=== PATIENT | female | born 2000 | race Hispanic/Latino ===

== ENCOUNTER 2018-10-11 07:39 | Emergency (ER) | payer OTHER ==
[2018-10-11 08:06] VITALS: BMI 32.8
[2018-10-11 08:07] VITALS: BP 131/86; TEMP 98
[2018-10-11] MEDS ORDERED: Sodium Chloride 0.9% 1,000 ML IV SCH (08:15)
--- NOTE | 2018-10-11 08:24 | ED PDOC ---
Arrival/HPI - General Historian: Patient - History of Present Illness Narrative History of Present Illness (Text): 10/11/18 08:18 Pt is a 18 yo female with a PMH of "thyroid problems", and depression who presents to the ED complaining of 3 episodes of billious vomiting this morning. Pt states she had been feeling feverish yesterday and took a dose of Doxycycline which she had left over from a previous illness. Pt denies sick contacts, diarrhea or constipation. Time/Duration: 24 hours Symptom Course: Collicky Quality: Unable to Describe Severity Level: 8 <Grabiel Gomez - Last Filed: 10/11/18 10:28> - History of Present Illness Associated Symptoms (Text): 10/11/18 09:03 Seen and examined with the resident. Our history and physical exam reveals a young woman complaining of nausea and vomiting this morning following taking doxycycline on an empty stomach. There is no abdominal pain. No diarrhea. No travel or exposure. She does not appear ill. Her abdomen is soft and nontender. <Dk Schofield - Last Filed: 10/11/18 10:51> - General Chief Complaint: GI Problem Time Seen by Provider: 10/11/18 07:45 Past Medical History - Psychiatric Hx Substance Use: No <Grabiel Gomez - Last Filed: 10/11/18 10:28> - Provider Review Nursing Documentation Reviewed: Yes <Dk Schofield - Last Filed: 10/11/18 10:51> Family/Social History Smoking Status: vape Hx Alcohol Use: Yes Frequency of alcohol use: Socially Hx Substance Use: No <Grabiel Gomez - Last Filed: 10/11/18 10:28> - Physician Review Nursing Documentation Reviewed: Yes Family/Social History: No Known Family HX <Dk Schofield - Last Filed: 10/11/18 10:51> Allergies/Home Meds <Grabiel Gomez - Last Filed: 10/11/18 10:28> <Dk Schofield - Last Filed: 10/11/18 10:51> Allergies/Adverse Reactions: Allergies almond Adverse Reaction (Verified 10/11/18 08:04) VOMITING carrots Adverse Reaction (Uncoded 10/11/18 08:04) RASH Review of Systems - Review of Systems Constitutional: Fevers Eyes: Normal ENT: Sore Throat Respiratory: Normal Cardiovascular: Normal Gastrointestinal: Nausea, Vomiting Musculoskeletal: Normal Skin: Normal Neurological: Normal Endocrine: Normal Hemo/Lymphatic: Normal Psychiatric: Normal <Grabiel Gomez - Last Filed: 10/11/18 10:28> - Physician Review All systems were reviewed & negative as marked: Yes <Dk Schofield - Last Filed: 10/11/18 10:51> Physical Exam Vital Signs Temp Pulse Resp BP Pulse Ox 10/11/18 07:58 98 F 94 H 19 131/86 97 Temperature: Afebrile Blood Pressure: Normal Pulse: Regular Respiratory Rate: Normal Appearance: Positive for: Well-Appearing Mental Status: Positive for: Alert and Oriented X 3 - Systems Exam Head: Present: Atraumatic, Normocephalic Pupils: Present: PERRL Extroacular Muscles: Present: EOMI Mouth: Present: Moist Mucous Membranes Neck: Present: Normal Range of Motion Respiratory/Chest: Present: Clear to Auscultation, Good Air Exchange. No: Respiratory Distress, Accessory Muscle Use Cardiovascular: Present: Regular Rate and Rhythm, Normal S1, S2. No: Murmurs Abdomen: Present: Normal Bowel Sounds. No: Tenderness, Distention Upper Extremity: Present: Normal Inspection Lower Extremity: Present: Normal Inspection. No: Edema Neurological: Present: GCS=15, CN II-XII Intact, Speech Normal Skin: Present: Warm, Dry, Rashes Psychiatric: Present: Alert, Oriented x 3 <Grabiel Gomez - Last Filed: 10/11/18 10:28> Vital Signs Reviewed: Yes Vital Signs Temp Pulse Resp BP Pulse Ox 10/11/18 07:58 98 F 94 H 19 131/86 97 <Dk Schofield - Last Filed: 10/11/18 10:51> Medical Decision Making ED Course and Treatment: 10/11/18 08:26 test CBC CMP 10/11/18 10:20 pt tolerating liquid PO intake, will discharge Pt seen, examined, assessment and plan discussed wit Dr Kanwal Gomez PGY1 - Medication Orders Current Medication Orders: Sodium Chloride (Sodium Chloride 0.9%) 1,000 mls @ 100 mls/hr IV .Q10H RONAL <Grabiel Gomez - Last Filed: 10/11/18 10:28> ED Course and Treatment: 10/11/18 10:26 Patient tolerated clear liquids and yogurt with no further nausea or vomiting. In agreement with resident note, which includes further HPI details. Patient was seen and evaluated with resident, came up with plan and treatment together. 18 year old female presents complaining of vomiting x3 that began this morning associated with a fever yesterday. Plan: -- labs -- IV Fluids, Zofran Inj -- POC Urine Test -- reassess/dispo - Lab Interpretations Lab Results: Total Bilirubin 0.4 mg/dL (0.2-1.3) 10/11/18 08:27 AST 26 U/L (14-36) 10/11/18 08:27 ALT 11 U/L (7-56) 10/11/18 08:27 Alkaline Phosphatase 64 U/L (38-126) 10/11/18 08:27 Total Protein 7.7 g/dL (5.8-8.3) 10/11/18 08:27 Albumin 4.4 g/dL (3.0-4.8) 10/11/18 08:27 Globulin 3.3 gm/dL 10/11/18 08:27 Albumin/Globulin Ratio 1.3 (1.1-1.8) 10/11/18 08:27 I have reviewed the lab results: Yes - Medication Orders Current Medication Orders: Sodium Chloride (Sodium Chloride 0.9%) 1,000 mls @ 100 mls/hr IV .Q10H RONAL Last Admin: 10/11/18 08:30 Dose: 100 mls/hr eMAR Start Stop Document 10/11/18 08:30 CD (Rec: 10/11/18 08:31 CD [id number]) Intravenous Solution Start Date 10/11/18 Start Time 08:30 <Dk Schofield - Last Filed: 10/11/18 10:51> - Scribe Statement The provider has reviewed the documentation as recorded by the Lam Stewart Provider Scribe Attestation: All medical record entries made by the Scribe were at my direction and personally dictated by me. I have reviewed the chart and agree that the record accurately reflects my personal performance of the history, physical exam, medical decision making, and the department course for this patient. I have also personally directed, reviewed, and agree with the discharge instructions and disposition. <Dk Schofield - Last Filed: 10/11/18 10:51> Disposition/Present on Arrival - Present on Arrival History of DVT/PE: No History of Uncontrolled Diabetes: No Urinary Catheter: No History of Decub. Ulcer: No History Surgical Site Infection Following: None <JasonGrabielelissa Curran - Last Filed: 10/11/18 10:28> - Present on Arrival Any Indicators Present on Arrival: No History of DVT/PE: No History of Uncontrolled Diabetes: No Urinary Catheter: No History of Decub. Ulcer: No History Surgical Site Infection Following: None - Disposition Have Diagnosis and Disposition been Completed?: Yes Disposition Time: 10:25 Patient Plan: Discharge <Dk Schofield - Last Filed: 10/11/18 10:51> - Disposition Diagnosis: Vomiting Disposition: HOME/ ROUTINE Condition: IMPROVED Discharge Instructions (ExitCare): Nausea and Vomiting, Adult (DC) Additional Instructions: Clear liquids for 24 hours. Follow-up with PMD. Follow-up in ER as needed. Prescriptions: Ondansetron ODT [Zofran ODT] 4 mg PO Q6 #20 odt Referrals: Kashmir Tenorio MD [Primary Care Provider] - Follow up with primary Forms: [employer] ([place]), WORK NOTE
[2018-10-11 09:03] LABS: ALB/GLOB RATIO 1.3 (1.1-1.8); ALBUMIN 4.4 g/dL (3.0-4.8); ALT/SGPT 11 U/L (7-56); AST/SGOT 26 U/L (14-36); BLOOD UREA NITROGEN 16 mg/dL (7-21); CALCIUM 9.2 mg/dL (8.4-10.5); GFR NON-AFRICAN AMERICAN > 60
[2018-10-11 09:04] LABS: BASO # 0.03 K/mm3 (0.0-2.0); BASO % 0.3 % (0.0-3.0); EOS # 0.1 (0.0-0.7); EOS % 0.6 % (1.5-5.0); HEMOGLOBIN 12.5 g/dL (12.0-16.0); LYMPH # 1.9 (1.2-3.4); LYMPH % 15.8 % (22.0-35.0); MEAN CELL VOLUME 87.7 fl (80.0-105.0); MEAN CORPUSCULAR HEMOGLOBIN 28.5 pg (25.0-35.0); MEAN CORPUSCULAR HGB CONC 32.5 g/dl (31.0-37.0); MONO # 1.1 (0.1-0.6); MONO % 8.9 % (1.0-6.0); RBC 4.39 10^6/uL (3.5-6.1); WHITE BLOOD COUNT 11.9 10^3/uL (4.5-11.0)
[2018-10-11 09:42] VITALS: PULSE 81; RESP 18; O2SAT 95
== END 2018-10-11 10:24 | disposition home or self-care (01) ==
LOC: ED 07:39
DX: R11.10 Vomiting, unspecified (principal)
CPT/HCPCS: 80053; 81025; 85025; 96374; 99285; J2405; J7030

== ENCOUNTER 2018-10-26 07:16 | Emergency (ER) | payer OTHER ==
[2018-10-26 07:16] VITALS: BMI 32.8
[2018-10-26 07:27] VITALS: BP 111/86; PULSE 86; RESP 18; TEMP 98.1; O2SAT 96
[2018-10-26] MEDS ORDERED: Amoxicillin-Clav 875-125 mg Tab PO STA (07:46)
--- NOTE | 2018-10-26 07:55 | ED PDOC ---
Arrival/HPI - General Chief Complaint: Bite Time Seen by Provider: 10/26/18 07:22 Historian: Patient - History of Present Illness Narrative History of Present Illness (Text): 10/26/18 07:45 18 year old female, with past medical history of hyperthyroidism, presents to emergency department for complaints of swelling and redness in left hand due to a bug bite that occurred last night. Patient states she was working in her uncle's yard when she was bitten by a bug. She reports swelling shortly after, and notes taking 2 benadryll at 9:45 with no significant improvement. She reports taking a third one at 11 pm. Patient states that swelling and redness further spread to knuckles this morning. She denies any fever, chills, chest pain, shortness of breath, or any other somatic complaints at this time. Time/Duration: Other (last night) Symptom Onset: Gradual Symptom Course: Unchanged Activities at Onset: Light Context: Other (yard ) Past Medical History - Provider Review Nursing Documentation Reviewed: Yes - Cardiac Other/Comment: Tachycardia from hyperthyroidism - Pulmonary Hx Respiratory Disorders: No - Neurological Hx Neurological Disorder: No - HEENT Hx HEENT Disorder: No - Renal Hx Renal Disorder: No - Endocrine/Metabolic Hx Hyperthyroidism: Yes - Hematological/Oncological Hx Blood Disorders: No - Integumentary Hx Dermatological Disorder: No - Musculoskeletal/Rheumatological Hx Musculoskeletal Disorders: No - Gastrointestinal Hx Gastrointestinal Disorders: No - Genitourinary/Gynecological Hx Genitourinary Disorders: No - Psychiatric Hx Psychophysiologic Disorder: Yes Hx Depression: Yes Hx Substance Use: No - Anesthesia Hx Anesthesia: No Family/Social History - Physician Review Nursing Documentation Reviewed: Yes Family/Social History: Unknown Family HX Smoking Status: Never Smoked Hx Alcohol Use: Yes Frequency of alcohol use: Socially Hx Substance Use: No Allergies/Home Meds Allergies/Adverse Reactions: Allergies almond Adverse Reaction (Verified 10/26/18 07:25) VOMITING carrots Adverse Reaction (Uncoded 10/26/18 07:25) RASH Home Medications: Home Meds Medication Instructions Recorded Confirmed Propranolol HCl [Propranolol HCl 60 mg PO DAILY 10/26/18 10/26/18 ER] Review of Systems - Physician Review All systems were reviewed & negative as marked: Yes - Review of Systems Constitutional: absent: Fevers Respiratory: absent: SOB Musculoskeletal: Joint Swelling (left hand ) Physical Exam - Physical Exam Narrative Physical Exam (Text): 10/26/18 07:56 Constitutional: No acute distress. Head: Normocephalic. Atraumatic. Eyes: PERRL. ENT: Moist mucous membranes. Neck: Supple. Cardiovascular: Regular rate. Chest: No tenderness. Respiratory: Clear to auscultation bilaterally. GI: Soft. Nontender. Nondistended. Back: No CVA tenderness. Musculoskeletal: No tenderness or swelling of extremities. Skin: Generalized edema and errythema to thenar region of left hand Neurologic: Alert, no focal deficit. Vital Signs Reviewed: Yes Vital Signs Temp Pulse Resp BP Pulse Ox 10/26/18 07:16 98.1 F 86 18 111/86 96 Temperature: Afebrile Blood Pressure: Normal Pulse: Regular Respiratory Rate: Normal Appearance: Positive for: Well-Appearing, Non-Toxic, Comfortable Pain Distress: None Mental Status: Positive for: Alert and Oriented X 3 Medical Decision Making ED Course and Treatment: 10/26/18 07:55 Impression: 18 year old female presents to emergency department for swelling in left hand following bug bite last night. Plan: -- Antibiotics, observe for spreading erytehma, fever, chills. - Medication Orders Current Medication Orders: Amoxicillin/Clavulanate Potassium (Augmentin 875 Mg-125 Mg Tab) 1 tab PO STAT STA; Protocol Stop: 10/26/18 07:47 - Scribe Statement The provider has reviewed the documentation as recorded by the Scribe Areli Carrasquillo All medical record entries made by the Scribe were at my direction and personally dictated by me. I have reviewed the chart and agree that the record accurately reflects my personal performance of the history, physical exam, medical decision making, and the department course for this patient. I have also personally directed, reviewed, and agree with the discharge instructions and disposition. Disposition/Present on Arrival - Present on Arrival Any Indicators Present on Arrival: No History of DVT/PE: No History of Uncontrolled Diabetes: No Urinary Catheter: No History of Decub. Ulcer: No History Surgical Site Infection Following: None - Disposition Have Diagnosis and Disposition been Completed?: Yes Diagnosis: Bug bite Disposition: HOME/ ROUTINE Disposition Time: 08:03 Patient Plan: Discharge Patient Problems: Current Active Problems Problem Status Onset Bug bite Acute Condition: GOOD Discharge Instructions (ExitCare): Insect Bites and Stings Prescriptions: Amoxicillin/Clavulanate [Augmentin 875 MG-125 MG] 1 tab PO BID #20 tab Referrals: Kashmir Tenorio MD [Primary Care Provider] - Follow up with primary Forms: [employer] ([place]), WORK NOTE
[2018-10-26] MEDS ORDERED: Sodium Chloride 0.9% 1,000 ML IV STA (08:05)
== END 2018-10-26 08:10 | disposition home or self-care (01) ==
LOC: ED 07:16
DX: S60.562A Insect bite (nonvenomous) of left hand, initial encounter (principal); W57.XXXA Bitten or stung by nonvenomous insect and other nonvenomous arthropods, initial encounter